=== PATIENT | female | born 1960 | race Caucasian/White ===

== ENCOUNTER 2016-12-30 14:00 | Outpatient (RCR) ==
--- NOTE | 2016-12-26 10:24 | RS.OPPTEV2 ---
Date of Note: 12/23/16 Visit #: 1 Date of Evaluation: 12/23/16 Payer Source: Insurance Surgery Performed?: No Treatment Diagnosis: Left shoulder pain History of Condition/Mechanism of Injury:: Patient reports left shoulder pain started approximately three weeks ago. Reports it seemed to start like a pulling in the muscles at the left side of the neck and went into the left shoulder. Now pain is primarily in the left shoulder. Prior Level of Function.....Patient was independent with: ADL's, Self Care, Work /Vocation, Caregiving, Ambulation/Mobility, Community Integration/Access Functional Limitations: Sleep, Self Care, ADL's, Reaching, Pushing, Pulling, Lifting, Carrying, Community Access/Integration Current Subjective/complaints:: Patient reports left shoulder pain. Reports being unable to use the left UE to pull the seatbelt across her, to reach her head to fix her hair, to russell her bra, and states she cannot lay on the left shoulder. She has had two occasions of severe pain with numnbess into the left UE, with the numbness going into the fingers of the left hand. She is right hand dominant. Reports she has not received an injection at this time. She is taking Aleve, which seems to help. States warmth from a hot shower seems to feel good to the shoulder. Treatment Side (optional): Left Medical History Surgical History: Cholecystectomy (2016) Smoking Status: Former smoker Hx Home Medications: Aleve Patient's Goals: Her goal is to gain relief of left shoulder pain. Pain Assessment - Pain Description Pain Location: left shoulder Current Pain Intensity: 1/10 Worst Pain Intensity: 8/10 Functional Outcome Measure UE Functional Index: 36 (36/80=55% impairment) - G Codes & Severity Modifier G Codes & Modifier: NA Source of G Code score: NA Observation - Observation Posture: Forward Head, Rounded Shoulders Handedness: Right Shoulder ROM: Right WFL's Shoulder Muscle Strength: Right WFL's - Left Shoulder ROM Left Shoulder Flexion: 95 (degrees AROM limited by pain) Left Shoulder Extension: 45 (degrees AROM) Left Shoulder Abduction: 55 (degrees limited by pain) Left Shoulder Internal Rotation: 65 (degrees AROM) Left Shoulder External Rotation: 35 (degrees AROM) Left Shoulder ROM Limitations: Pain Comments: Reports no left UE symptoms with cervical AROM. - Left Shoulder Strength Left Shoulder Flexion: 4+ Good + Left Shoulder Extension: 5 Normal Left Shoulder Abduction: 4 Good Left Shoulder Adduction: 5 Normal Left Shoulder External Rotation: 4+ Good + Left Shoulder Internal Rotation: 4+ Good + Comments: Mild discomfort reported with MMT of shoulder flexion,abduction, ER, and IR - Special Tests Shoulder Empty Can (Supraspinatus) Test: Positive Left Shoulder Speed's Sign Test: Positive Left Shoulder Drop Arm Test: Negative Left Shoulder Cao-Porfirio Impingement Test: Positive Left Cattle Driver Strength Left Hand Cattle Driver Strength: 44 lbs. Right Hand Cattle Driver Strength: 44 lbs. Dynamometer Testing Position: 2nd Position Palpation Comments:: Patient reports most tenderness over the posterior/lateral aspect of the humerus with palpation. Slight tenderness over the long head of the biceps tendon. Sensation - Sensation Comments: Reports sensation to light touch is intact throughout bilateral UE's. - Treatment Modality: Ultrasound Parameters/Method Applied: 1.2 w/cm2 pulsed @ 20% X 10 mins throughout left shoulder joint. Patient Position: Sitting Interventions - Exercise/Activities/Manual Therapy Exercises/Activities: Patient instructed in Pendulum exercise, scapular retraction, cervical retraction for HEP. Manual Therapy: NA HOME EXERCISE PROGRAM: Pendulum exercise, scapular retraction, cervical retraction - Charges Total Direct Minutes: 55 mins Total Treatment Time: 55 mins Procedures billed for this date of service:: James Sanchez , Assessment Assessment: Patient presents to therapy with a diagnosis of left shoulder pain. She reports having pain for ~ three weeks. She demonstrates symptoms of Impingement syndrome with possible involvement of RTC, biceps, and/or subacromial bursa. At this time she has pain with a variety of movements and with MMT. As inflammation is decreased, it should be easier to determine her source of pain. She demonstrates good potential to benefit from modalities and exercises to resolve her pain. Patient Education: Education of diagnosis, Body/Joint mechanics, Home Exercise Program, Home Safety, Activity Modification, Education of Plan of Care Rehab Potential: Good Short Term Goals Goal #1: Patient independent in basic HEP. Goal to be met by: 01/09/17 Goal #2: Right shoulder active flexion to 120 without pain. Goal to be met by: 01/09/17 Goal #3: Patient to demonstrate good postural awareness. Goal to be met by: 01/09/17 Group Home Goals Goal #1: Pt knows HEP and to continue ex's to maintain functional level at D/C. Goal to be met by: 02/04/17 Goal #2: Score on UE functional scale improved to 60/80. Goal to be met by: 02/04/17 Goal #3: Pt able to use left UE for all selfcare and ADL's without difficulty. Goal to be met by: 02/04/17 Goal #4: Pt able to sleep 6-8 hours without interruption from left shoulder pain. Goal to be met by: 02/04/17 Plan - Treatment to be Provided Procedures: Therapeutic Exercises, Therapeutic Activity, Manual Therapy, Patient Education Modalities: Electrical Stimulation, Ultrasound/Phonophoresis, Class IV Laser, Cryotherapy, Hot Packs - Treatment Plan Frequency: 3 X week Duration: 4 weeks ORDER # VISITS AND/OR THROUGH DATE: 02/04/17 - Treatment Code (1) Shoulder pain Qualifiers: Laterality: left Chronicity: acute Qualified Description: Acute pain of left shoulder Qualifier Code(s): (M25.512) Pain in left shoulder (2) Impingement syndrome of left shoulder Comments: M75.42
--- NOTE | 2016-12-26 16:38 | RS.OPPTDN ---
Subjective Date of Note: 12/26/16 Visit #: 2 Date of Evaluation: 12/23/16 Payer Source: Insurance Treatment Diagnosis: Left shoulder pain Current Subjective/complaints:: Patient reports increased anterior left shoulder joint pain. States she was performing scap retraction exercise and feel a pull and has had pain all day. Pain Assessment - Pain Description Pain Location: left shoulder Current Pain Intensity: mod - Treatment Modality: Ultrasound Parameters/Method Applied: [id number] at 1.5w/cm2 and last 3mins on pulsed setting to the left shoulder joint. Patient Position: Sitting - Heat/Cryotherapy Treatment: Hot Pack ([id number] to the left shoulder prior to US and EX. Patient in sitting. ) Interventions - Exercise/Activities/Manual Therapy Exercises/Activities: Reveiwed pendulum exercise, scapular retraction, cervical retraction for HEP. Began isometric shoulder extension, adduction, IR, and ER all in neutral. Began cervical lateral flexion stretching. Total minutes of Exercise: 15mins Manual Therapy: NA HOME EXERCISE PROGRAM: Pendulum exercise, scapular retraction, cervical retraction, isometric shoulder ext and add - Charges Total Direct Minutes: 29mins Total Treatment Time: 49mins Procedures billed for this date of service:: HP, US, EX Assessment: Patient with flair-up of pain following increase in exercise. She will need to continue with modalities and gentle exercise in attempt to reduce inflammation and pain. Patient Education: Home Exercise Program Patient demonstrates compliance with HEP?: Yes Short Term Goals Goal #1: Patient independent in basic HEP. Goal to be met by: 01/09/17 Progress towards Goal:: Progressing Goal #2: Right shoulder active flexion to 120 without pain. Goal to be met by: 01/09/17 Goal #3: Patient to demonstrate good postural awareness. Goal to be met by: 01/09/17 Progress towards Goal:: Progressing Group Home Goals Goal #1: Pt knows HEP and to continue ex's to maintain functional level at D/C. Goal to be met by: 02/04/17 Goal #2: Score on UE functional scale improved to 60/80. Goal to be met by: 02/04/17 Goal #3: Pt able to use left UE for all selfcare and ADL's without difficulty. Goal to be met by: 02/04/17 Goal #4: Pt able to sleep 6-8 hours without interruption from left shoulder pain. Goal to be met by: 02/04/17 Plan PLAN OF CARE EXPIRES ON:: 02/04/17 ORDER # VISITS AND/OR THROUGH DATE: 02/04/17 PLAN: Continue Plan of Care
--- NOTE | 2016-12-30 15:27 | RS.OPPTDN ---
Subjective Date of Note: 12/30/16 Visit #: 3 Date of Evaluation: 12/23/16 Payer Source: Insurance Treatment Diagnosis: Left shoulder pain Current Subjective/complaints:: Patient reports continued pain in the anterior shoulder joint and increased pain with active motion at shoulder height, including shoulder retraction. Tom decides to hold treatment at this time and she will contact physician if no improvement seen by Monday. She will continue basic HEP. Pain Assessment - Pain Description Pain Location: left shoulder Current Pain Intensity: mod - Treatment Modality: Ultrasound Parameters/Method Applied: [id number] at 1.5w/cm2 for 7mins and then pulsed for 5mins to the left shouulder joint prior to EX. Patient Position: Sitting - Heat/Cryotherapy Treatment: Hot Pack ([id number] to the left shoulder joint prior to US and EX. Patient in sitting. ) Interventions - Exercise/Activities/Manual Therapy Exercises/Activities: Reveiwed pendulum exercise, scapular retraction, cervical retraction for HEP. Isometric shoulder extension, adduction, IR, and ER all in neutral. AAROM. Table slides. Reviewed overhead AAROM clasped hands shoulder flexion. Began shoulder pulleys. Total minutes of Exercise: 18mins Manual Therapy: NA HOME EXERCISE PROGRAM: Pendulum exercise, scapular retraction, cervical retraction, isometric shoulder ext and add. AAROM for shoulder flexion with hands clasped on bed or semi-reclined in recliner. Shoulder pulleys for gentle ROM - Charges Total Direct Minutes: 32mins Total Treatment Time: 52mins Procedures billed for this date of service:: HP, US, EX Assessment: Patient unsure of progress with current treatment. Will hold at this time and contact physician on Monday. Patient Education: Education of diagnosis, Body/Joint mechanics, Home Exercise Program, Home Safety, Activity Modification Patient demonstrates compliance with HEP?: Yes Short Term Goals Goal #1: Patient independent in basic HEP. Goal to be met by: 01/09/17 (100%) Progress towards Goal:: Met Goal #2: Right shoulder active flexion to 120 without pain. Goal to be met by: 01/09/17 Progress towards Goal:: Not Met Goal #3: Patient to demonstrate good postural awareness. Goal to be met by: 01/09/17 Progress towards Goal:: Progressing Mcfp Goals Goal #1: Pt knows HEP and to continue ex's to maintain functional level at D/C. Goal to be met by: 02/04/17 Progress towards goal: Progressing Goal #2: Score on UE functional scale improved to 60/80. Goal to be met by: 02/04/17 Progress towards goal: Not Met Goal #3: Pt able to use left UE for all selfcare and ADL's without difficulty. Goal to be met by: 02/04/17 Progress towards goal: Not Met Goal #4: Pt able to sleep 6-8 hours without interruption from left shoulder pain. Goal to be met by: 02/04/17 Progress towards goal: Not Met Plan PLAN OF CARE EXPIRES ON:: 02/04/17 ORDER # VISITS AND/OR THROUGH DATE: 02/04/17 PLAN: Hold (Patient to contact physician first of next week if no improvement seen.)
== END 2017-01-18 ==
PROVIDERS: ATTEND Physician Assistant Medical
DX: M25.512 Pain in left shoulder (principal)

== ENCOUNTER 2017-02-13 09:15 | Outpatient (RCR) ==
--- NOTE | 2017-01-26 13:16 | RS.OPPTEV2 ---
Date of Note: 01/25/17 Visit #: 1 Date of Evaluation: 01/25/17 Payer Source: Insurance Procedure Performed: Left shoulder manipulation Date of Procedure: 01/24/17 Treatment Diagnosis: Left shoulder pain, left shoulder stiffness, s/p left manipulation History of Condition/Mechanism of Injury:: Patient reports having a manipulation of the left shoulder yesterday. She received a few weeks of therapy to the left shoulder without any significant benefit prior to having this manipulation. Prior Level of Function.....Patient was independent with: ADL's, Self Care, Work /Vocation, Caregiving, Ambulation/Mobility, Community Integration/Access Functional Limitations: Sleep, Self Care, ADL's, Reaching, Pushing, Pulling, Lifting, Carrying, Community Access/Integration Current Subjective/complaints:: Patient reports no significant increase in left shoulder pain since the manipulation yesterday. In fact, she reports less sharp pains in the shoulder region today. Sleep has been interrupted since having progressive left shoulder pain. States the nerve block from the procedure wore off last night. She denies any tingling or numbness in the left UE. She took pain medication at bedtime, but has not taken any pain medication today. She goes back for a follow up appointment on 02/04/17. States she is able to perform the pendulum exercise now without the discomfort she had prior to the manipulation. Treatment Side (optional): Left Medical History Surgical History: Cholecystectomy (2016) Smoking Status: Former smoker Hx Home Medications: Aleve Patient's Goals: Her goal is to regain full AROM of the left shoulder. Pain Assessment - Pain Description Pain Location: left shoulder Current Pain Intensity: 2/10 Worst Pain Intensity: 7/10 Functional Outcome Measure UE Functional Index: 53 (53/80=33.7% impairment) - G Codes & Severity Modifier G Codes & Modifier: NA Source of G Code score: NA Observation - Observation Posture: Forward Head, Rounded Shoulders Handedness: Right Shoulder ROM: Right WFL's Shoulder Muscle Strength: Right WFL's - Left Shoulder ROM Comments: AROM shoulder: flexion 95 degrees, abduction 70 degrees, IR 45 degrees, ER 20 degrees. All active ROM limited by pain. PROM: flexion 140 degrees, abduction 120 degrees, ER 50 degrees, IR 60 degrees. Patient demonstrates muscle guarding, which does improve after a few minutes of ROM/ stretching. - Left Shoulder Strength Comments: Left shoulder strength generally 4/5. Sensation - Sensation Right Upper Extremity: Intact/Normal Left Upper Extremity: Intact/Normal Interventions - Exercise/Activities/Manual Therapy Exercises/Activities: Patient received ~ 20 mins of PROM/stretching in all directions to the left shoulder. She reports pain at end range with all directions, but reports more pain with ER. Performed contract/relax technique for ER, which does help. As patient was able to relax, left shoulder tolerated more ROM. Instructed in Passive and AAROM of left shoulder in all directions- demonstrated with wand and in door threshold. Advised to use heat prior to stretching and ice following stretching/exercises. Total minutes of Exercise: X 20 mins Manual Therapy: NA HOME EXERCISE PROGRAM: Pendulum exercise, wand for AAROM into shoulder flexion, abduction, ER. Door threshold for self-stretch into ER. - Charges Total Direct Minutes: 45 mins Total Treatment Time: 45 mins Procedures billed for this date of service:: SUMMER Cardenas Assessment Assessment: Patient presents one day s/p left shoulder manipulation. She reports less sharp pains in the shoulder since the procedure. She demonstrates limited passive and active left shoulder ROM and general weakness. She will benefit from consistent ROM and strengthening to regain functional, pain-free AROM of the left shoulder. Patient Education: Education of diagnosis, Body/Joint mechanics, Home Exercise Program, Education of Plan of Care Rehab Potential: Good Short Term Goals Goal #1: Patient independent in basic HEP. Goal to be met by: 02/09/17 Goal #2: PROM of left shoulder WFL's. Goal to be met by: 02/09/17 Goal #3: Left shoulder strength 4+/5. Goal to be met by: 02/09/17 Jail Goals Goal #1: Pt knows HEP and to continue ex's to maintain functional level at D/C. Goal to be met by: 03/07/17 Goal #2: Score on UE functional scale improved to 60/80. Goal to be met by: 03/07/17 Goal #3: Pt able to use left UE for all selfcare and ADL's without difficulty. Goal to be met by: 03/07/17 Goal #4: Pt able to sleep 6-8 hours without interruption from left shoulder pain. Goal to be met by: 03/07/17 Plan - Treatment to be Provided Procedures: Therapeutic Exercises, Therapeutic Activity, Manual Therapy, Patient Education Modalities: Electrical Stimulation, Ultrasound/Phonophoresis, Class IV Laser, Cryotherapy, Hot Packs - Treatment Plan Frequency: 3 X week Duration: 4 weeks ORDER # VISITS AND/OR THROUGH DATE: 03/07/17 - Treatment Code (1) Shoulder pain Qualifiers: Chronicity: acute Laterality: left Qualified Description: Acute pain of left shoulder Qualifier Code(s): (M25.512) Pain in left shoulder (2) Stiffness of left shoulder joint Comments: M25.612 (3) Tendinopathy of left rotator cuff Comments: M67.912 (4) Other specified postprocedural states Comments: Z98.890 s/p left shoulder manipulation
--- NOTE | 2017-01-27 09:40 | RS.OPPTDN ---
Subjective Date of Note: 01/27/17 Visit #: 2 Date of Evaluation: 01/25/17 Payer Source: Insurance Treatment Diagnosis: Left shoulder pain, left shoulder stiffness, s/p left manipulation Current Subjective/complaints:: Patient says she worked on HEP yesterday, but had increased pain during a portion of it and it made her stop. She had taken a pain pill and went to bed. She did take a pain med prior to treatment today. Pain Assessment - Pain Description Pain Location: left shoulder Current Pain Intensity: 2/10 - Heat/Cryotherapy Treatment: Hot Pack (15 mins to the L shoulder in sitting) Interventions - Exercise/Activities/Manual Therapy Exercises/Activities: Patient received PROM all dir for the L shoulder in supine. AA Flexion to ~155 degrees today. ABD and ER slightly better than at eval, but with more discomfor than flexion. Began manual isometrics for IR/ER x 5. AAROM with 1# wand for bilateral shoulder flexion. Instructed on wall slides. Total minutes of Exercise: 26 Manual Therapy: NA HOME EXERCISE PROGRAM: Pendulum exercise, wand for AAROM into shoulder flexion, abduction, ER. Door threshold for self-stretch into ER. - Charges Total Direct Minutes: 26 Total Treatment Time: 41 Procedures billed for this date of service:: hp, ex2 Short Term Goals Goal #1: Patient independent in basic HEP. Goal to be met by: 02/09/17 Progress towards Goal:: Progressing Goal #2: PROM of left shoulder WFL's. Goal to be met by: 02/09/17 Goal #3: Left shoulder strength 4+/5. Goal to be met by: 02/09/17 Radiocommunications Technician Goals Goal #1: Pt knows HEP and to continue ex's to maintain functional level at D/C. Goal to be met by: 03/07/17 Goal #2: Score on UE functional scale improved to 60/80. Goal to be met by: 03/07/17 Goal #3: Pt able to use left UE for all selfcare and ADL's without difficulty. Goal to be met by: 03/07/17 Goal #4: Pt able to sleep 6-8 hours without interruption from left shoulder pain. Goal to be met by: 03/07/17 Plan PLAN OF CARE EXPIRES ON:: 03/07/17 ORDER # VISITS AND/OR THROUGH DATE: 03/07/17 PLAN: Progress Exercises
--- NOTE | 2017-01-30 09:09 | RS.OPPTDN ---
Subjective Date of Note: 01/30/17 Visit #: 3 Date of Evaluation: 01/25/17 Payer Source: Insurance Treatment Diagnosis: Left shoulder pain, left shoulder stiffness, s/p left manipulation Current Subjective/complaints:: Patient says she has been performing HEP twice daily. She says she is consciencious of using the L arm and uses it more with daily tasks. States she can tell she has more motion in abd. Pain Assessment - Pain Description Pain Location: left shoulder Current Pain Intensity: 0, took pain pill prior to PT appt - Heat/Cryotherapy Treatment: Hot Pack (15 mins to the L UE in supine) Interventions - Exercise/Activities/Manual Therapy Exercises/Activities: Patient received PROM all dir for the L shoulder in supine. Patient was able to ankur increased shoulder flexion to ~160 today. ABD and ER also ankur better and more range than last session. Began manual isometrics for IR/ER 2 x 5. AAROM with 1# wand for bilateral shoulder flexion and press ups. Instructed and performed yellow tband scap retraction. Total minutes of Exercise: 27 Manual Therapy: NA HOME EXERCISE PROGRAM: Pendulum exercise, wand for AAROM into shoulder flexion, abduction, ER. Door threshold for self-stretch into ER. - Charges Total Direct Minutes: 27 Total Treatment Time: 42 Procedures billed for this date of service:: hp, ex2 Assessment: Patient very consistent with HEP at this point. She is able to ankur increased shoulder flexion and abd today compared to even last session. She demo soft end feel throughout all motion and provides good resistance with all isometrics. Patient Education: Education of diagnosis, Body/Joint mechanics, Home Exercise Program, Home Safety, Activity Modification, Education of Plan of Care Patient demonstrates compliance with HEP?: Yes Short Term Goals Goal #1: Patient independent in basic HEP. Goal to be met by: 02/09/17 Progress towards Goal:: Progressing Goal #2: PROM of left shoulder WFL's. Goal to be met by: 02/09/17 Progress towards Goal:: Progressing Goal #3: Left shoulder strength 4+/5. Goal to be met by: 02/09/17 Progress towards Goal:: Progressing Information Officer Goals Goal #1: Pt knows HEP and to continue ex's to maintain functional level at D/C. Goal to be met by: 03/07/17 Goal #2: Score on UE functional scale improved to 60/80. Goal to be met by: 03/07/17 Goal #3: Pt able to use left UE for all selfcare and ADL's without difficulty. Goal to be met by: 03/07/17 Goal #4: Pt able to sleep 6-8 hours without interruption from left shoulder pain. Goal to be met by: 03/07/17 Plan PLAN OF CARE EXPIRES ON:: 02/05/17 ORDER # VISITS AND/OR THROUGH DATE: 03/07/17 PLAN: Progress Exercises
--- NOTE | 2017-02-01 09:36 | RS.OPPTDN ---
Subjective Date of Note: 02/01/17 Visit #: 4 Date of Evaluation: 01/25/17 Payer Source: Insurance Treatment Diagnosis: Left shoulder pain, left shoulder stiffness, s/p left manipulation Current Subjective/complaints:: Patient says she has had very little pain and none with taking pain meds prior to PT. She says she was able to pull her hair back and through baseball cap hole without the assistance from her . She also is able to remove tshirts with arms wrapped around her chest and pulling it over her head. Pain Assessment - Pain Description Pain Location: left shoulder Pain Description: nauseated temporarily while sitting for heat and following taking pain meds Current Pain Intensity: 0, took pain pill prior to PT appt - Heat/Cryotherapy Treatment: Hot Pack (15 mins to the L shoulder in sitting) Interventions - Exercise/Activities/Manual Therapy Exercises/Activities: Patient received PROM all dir for the L shoulder in supine. Patient was able to ankur increased shoulder flexion to ~165-170 today. ABD to 160 and ER also ankur better and more range than last session. Began manual isometrics for IR/ER 2 x 5. AAROM with 1# wand for bilateral shoulder flexion and press ups. 2# wand for 5 reps of bilateral shoulder flexion. Progressed to red tband for scap retraction as she felt yellow was too easy. Audible pops x 2 during shoulder flexion passively today, but did not produce pain. Total minutes of Exercise: 28 Manual Therapy: NA HOME EXERCISE PROGRAM: Pendulum exercise, wand for AAROM into shoulder flexion, abduction, ER. Door threshold for self-stretch into ER. - Charges Total Direct Minutes: 28 Total Treatment Time: 43 Procedures billed for this date of service:: hp, ex2 Assessment: Patient progressing to red tband for home. Added weight today with bialteral shoulder activities. 4+/5 MMT generally throughout the L shoulder today. Ankur all therex with only mild soreness at end range ER and ABD. Active shoulder flexion: 156 (Passive 163 supine). Active shoulder ABD: 160 ( Passive 165 supine). IR Functional reach: L3. ER Functional reach: T2 Patient Education: Education of diagnosis, Body/Joint mechanics, Home Exercise Program, Home Safety, Activity Modification, Education of Plan of Care Patient demonstrates compliance with HEP?: Yes Short Term Goals Goal #1: Patient independent in basic HEP. Goal to be met by: 02/09/17 Progress towards Goal:: Progressing Goal #2: PROM of left shoulder WFL's. Goal to be met by: 02/09/17 Progress towards Goal:: Partially Met Comments:: with exception of IR Goal #3: Left shoulder strength 4+/5. 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 Goal to be met by: 03/07/17 Progress towards goal: Progressing Goal #2: Score on UE functional scale improved to 60/80. Goal to be met by: 03/07/17 Goal #3: Pt able to use left UE for all selfcare and ADL's without difficulty. Goal to be met by: 03/07/17 Progress towards goal: Progressing (improving with ADLs, grooming, clothing) Goal #4: Pt able to sleep 6-8 hours without interruption from left shoulder pain. Goal to be met by: 03/07/17 Plan PLAN OF CARE EXPIRES ON:: 03/07/17 ORDER # VISITS AND/OR THROUGH DATE: 03/07/17 PLAN: Progress Exercises (Follow up with ortho this Monday, February 03.)
--- NOTE | 2017-02-03 14:44 | RS.OPPTDN ---
Subjective Date of Note: 02/03/17 Visit #: 5 Date of Evaluation: 01/25/17 Payer Source: Insurance Treatment Diagnosis: Left shoulder pain, left shoulder stiffness, s/p left manipulation Current Subjective/complaints:: Patient says she has been released from MD due to progress. PA recommended her to continue with PT though. She says she is only taking pain meds TIW just once prior to PT. Says she continues to work on HEP twice daily. Pain Assessment - Pain Description Pain Location: left shoulder Current Pain Intensity: 0, took pain pill prior to PT appt - Heat/Cryotherapy Treatment: Hot Pack (15 mins to the L shoulder in sitting) Interventions - Exercise/Activities/Manual Therapy Exercises/Activities: Patient received PROM all dir for the L shoulder in supine. Patient was able to ankur increased shoulder flexion to ~165-170 today. ABD to 160 and ER also ankur better and more range than last session. Continued with manual isometrics for IR/ER 2 x 5. AAROM with 1# wand for bilateral shoulder flexion and 2# for press ups x 10. 2# wand for 5 reps of bilateral shoulder flexion. Patient progressed herself to green and for scap retraction. Supine wrist and elbow 1# PRE's x 10. Sitting 1# wand for bilateral shoulder flexion x 10 to full flexion. Shoulder shrugs. Total minutes of Exercise: 34 Manual Therapy: NA HOME EXERCISE PROGRAM: Pendulum exercise, wand for AAROM into shoulder flexion, abduction, ER. Door threshold for self-stretch into ER. - Charges Total Direct Minutes: 34 Total Treatment Time: 49 Procedures billed for this date of service:: caridad, ex2 Assessment: Patient has been released from MD at this point since she has progressed so well. She demo full shoulder flexion actively with wand exercise. She admits no pain with any therex and only taking one pain pill prior to PT appts. She denies trouble sleeping. Good resistance manually generally throughout the L shoulder. Patient Education: Education of diagnosis, Body/Joint mechanics, Home Exercise Program, Home Safety, Activity Modification, Education of Plan of Care Patient demonstrates compliance with HEP?: Yes Short Term Goals Goal #1: Patient independent in basic HEP. Goal to be met by: 02/09/17 Progress towards Goal:: Progressing Goal #2: PROM of left shoulder WFL's. Goal to be met by: 02/09/17 Progress towards Goal:: Partially Met Goal #3: Left shoulder strength 4+/5. Goal to be met by: 02/09/17 Progress towards Goal:: Met Alf Goals Goal #1: Pt knows HEP and to continue ex's to maintain functional level at D/C. Goal to be met by: 03/07/17 Progress towards goal: Progressing Goal #2: Score on UE functional scale improved to 60/80. Goal to be met by: 03/07/17 Goal #3: Pt able to use left UE for all selfcare and ADL's without difficulty. Goal to be met by: 03/07/17 Progress towards goal: Progressing (improving with ADLs, grooming, clothing) Goal #4: Pt able to sleep 6-8 hours without interruption from left shoulder pain. Goal to be met by: 03/07/17 Plan PLAN OF CARE EXPIRES ON:: 03/07/17 ORDER # VISITS AND/OR THROUGH DATE: 03/07/17 PLAN: Progress Exercises
--- NOTE | 2017-02-06 10:47 | RS.OPPTDN ---
Subjective Date of Note: 02/06/17 Visit #: 6 Date of Evaluation: 01/25/17 Payer Source: Insurance Treatment Diagnosis: Left shoulder pain, left shoulder stiffness, s/p left manipulation Current Subjective/complaints:: Patient says she is able to notice more rotation of the L arm. She says she can pull it behind her back higher and with less difficulty. Pain Assessment - Pain Description Pain Location: left shoulder Current Pain Intensity: 0, took pain pill prior to PT appt - Heat/Cryotherapy Treatment: Hot Pack (15 mins to the L shoulder in sitting) Interventions - Exercise/Activities/Manual Therapy Exercises/Activities: Patient received PROM and stretch all dir for the L shoulder in supine. Continued with manual isometrics for IR/ER 2 x 5. AAROM progressed to 2# wand for bilateral shoulder flexion and 2# for press ups 2 x 10. 2# PREs for wrist and elbow motions in supine x 10. 7 and 9# digiflexor for full telecommunications project manager x 10 each. 1# PRE dumbell for punches in supine x 10. Sitting 1# wand for bilateral shoulder flexion and abd x 10 to full flexion. Total minutes of Exercise: 30 Manual Therapy: NA HOME EXERCISE PROGRAM: Pendulum exercise, wand for AAROM into shoulder flexion, abduction, ER. Door threshold for self-stretch into ER. - Charges Total Direct Minutes: 30 Total Treatment Time: 45 Procedures billed for this date of service:: hp, ex2 Assessment: Patient demo improved ability to perform ADLs and AROM. She maintains no difficulty sleeping or pain at current. She is advancing with strengthening well. Patient Education: Education of diagnosis, Body/Joint mechanics, Home Exercise Program, Home Safety, Activity Modification, Education of Plan of Care Patient demonstrates compliance with HEP?: Yes Short Term Goals Goal #1: Patient independent in basic HEP. Goal to be met by: 02/09/17 Progress towards Goal:: Progressing Goal #2: PROM of left shoulder WFL's. Goal to be met by: 02/09/17 Progress towards Goal:: Partially Met Goal #3: Left shoulder strength 4+/5. Goal to be met by: 02/09/17 Progress towards Goal:: Met Heat Reader Goals Goal #1: Pt knows HEP and to continue ex's to maintain functional level at D/C. Goal to be met by: 03/07/17 Progress towards goal: Progressing Goal #2: Score on UE functional scale improved to 60/80. Goal to be met by: 03/07/17 Goal #3: Pt able to use left UE for all selfcare and ADL's without difficulty. Goal to be met by: 03/07/17 Progress towards goal: Progressing (improving with ADLs, grooming, clothing) Goal #4: Pt able to sleep 6-8 hours without interruption from left shoulder pain. Goal to be met by: 03/07/17 Plan PLAN OF CARE EXPIRES ON:: 03/07/17 ORDER # VISITS AND/OR THROUGH DATE: 03/07/17 PLAN: Progress Exercises
--- NOTE | 2017-02-08 11:28 | RS.OPPTDN ---
Subjective Date of Note: 02/08/17 Date of Evaluation: 01/25/17 Payer Source: Insurance Treatment Diagnosis: Left shoulder pain, left shoulder stiffness, s/p left manipulation Current Subjective/complaints:: Patient says her shoulder has been popping some. She denies any pain. She has been able to notice improvement with getting clothes out of her washer and placing in the dryer as well as fastening and unbuckleing it. Reports she feels she has nearly the motion of her opposite arm with the exception of rotation (IR). Pain Assessment - Pain Description Pain Location: left shoulder Current Pain Intensity: 0, took pain pill prior to PT appt - Heat/Cryotherapy Treatment: Hot Pack (15 mins to the L shoulder in sitting) Interventions - Exercise/Activities/Manual Therapy Exercises/Activities: Patient received PROM and stretch all dir for the L shoulder in supine. Continued with manual isometrics for IR/ER 2 x 10. 2 1/ 2# wand for bilateral shoulder flexion and 2# for press ups 2 x 10. 2# PREs for wrist and elbow motions in supine x 10. 7 and 9# digiflexor for full sales and catering coordinator x 10 each. 1# PRE dumbell for punches and shoulder flex in supine x 10. Added 1# dumbell for diagonals (pect clavicular and sternal fibers) x 5 each. Sitting : 2 1/2# wand for bilateral shoulder flexion, 1# dumbell for shoulder flexion and abd. UBE for/retro x 4 mins with mod resistance. Total minutes of Exercise: 35 Manual Therapy: NA HOME EXERCISE PROGRAM: Pendulum exercise, wand for AAROM into shoulder flexion, abduction, ER. Door threshold for self-stretch into ER. - Charges Total Direct Minutes: 35 Total Treatment Time: 50 Procedures billed for this date of service:: hp, ex2 Assessment: Patient demo full active shoulder flexion and abd. ER is WFL and IR improving by 10 degrees today compared to last session. She is comfortable with this week being her final week as her MD has released her and she is able to perform strengthening at home. Patient Education: Education of diagnosis, Body/Joint mechanics, Home Exercise Program, Home Safety, Activity Modification, Education of Plan of Care Patient demonstrates compliance with HEP?: Yes Short Term Goals Goal #1: Patient independent in basic HEP. Goal to be met by: 02/09/17 Progress towards Goal:: Met Goal #2: PROM of left shoulder WFL's. Goal to be met by: 02/09/17 Progress towards Goal:: Met Goal #3: Left shoulder strength 4+/5. 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 Goal to be met by: 03/07/17 Progress towards goal: Progressing Goal #2: Score on UE functional scale improved to 60/80. Goal to be met by: 03/07/17 Comments: Assess next session Goal #3: Pt able to use left UE for all selfcare and ADL's without difficulty. Goal to be met by: 03/07/17 Progress towards goal: Progressing (improving with ADLs, grooming, clothing) Goal #4: Pt able to sleep 6-8 hours without interruption from left shoulder pain. Goal to be met by: 03/07/17 Plan PLAN OF CARE EXPIRES ON:: 03/07/17 ORDER # VISITS AND/OR THROUGH DATE: 03/07/17 PLAN: Plan for Discharge
--- NOTE | 2017-02-10 11:56 | RS.OPPTDN ---
Subjective Date of Note: 02/10/17 Visit #: 8 Date of Evaluation: 01/25/17 Payer Source: Insurance Treatment Diagnosis: Left shoulder pain, left shoulder stiffness, s/p left manipulation Current Subjective/complaints:: Patient says she is finding it easier to reach up her back, but does have occasional popping to the L shoulder. She denies pain and it is not constant. Pain Assessment - Pain Description Pain Location: left shoulder Interventions - Exercise/Activities/Manual Therapy Exercises/Activities: Shayla began with UBE x 4 mins for/retro. Patient received PROM and stretch all dir for the L shoulder in supine. Continued with manual isometrics for IR/ER 2 x 10. 2 1/2# wand for bilateral shoulder flexion and 2# for press ups 2 x 10. 2# PREs for wrist and elbow motions in supine x 10. 7 and 9# digiflexor for full manager acquisition x 10 each. Green tband for pull downs 2/10. 1# PRE dumbell for punches and shoulder flex in supine x 10. Sittin 1/2# wand for bilateral shoulder flexion, 1# dumbell for shoulder flexion and abd. Green tband for bilateral shoulder ER x 10. Standing green tband pull downs x 15. Total minutes of Exercise: 38 Manual Therapy: NA HOME EXERCISE PROGRAM: Pendulum exercise, wand for AAROM into shoulder flexion, abduction, ER. Door threshold for self-stretch into ER. - Charges Total Direct Minutes: 38 Total Treatment Time: 38 Procedures billed for this date of service:: ex3 Patient Education: Education of diagnosis, Body/Joint mechanics, Home Exercise Program, Home Safety, Activity Modification, Education of Plan of Care Patient demonstrates compliance with HEP?: Yes Short Term Goals Goal #1: Patient independent in basic HEP. Goal to be met by: 02/09/17 Progress towards Goal:: Met Goal #2: PROM of left shoulder WFL's. Goal to be met by: 02/09/17 Progress towards Goal:: Met Goal #3: Left shoulder strength 4+/5. Goal to be met by: 02/09/17 Progress towards Goal:: Met Nursing Home Goals Goal #1: Pt knows HEP and to continue ex's to maintain functional level at D/C. Goal to be met by: 03/07/17 Progress towards goal: Progressing Goal #2: Score on UE functional scale improved to 60/80. Goal to be met by: 03/07/17 Goal #3: Pt able to use left UE for all selfcare and ADL's without difficulty. Goal to be met by: 03/07/17 Progress towards goal: Progressing (improving with ADLs, grooming, clothing) Goal #4: Pt able to sleep 6-8 hours without interruption from left shoulder pain. Goal to be met by: 03/07/17 Plan PLAN OF CARE EXPIRES ON:: 03/07/17 ORDER # VISITS AND/OR THROUGH DATE: 03/07/17 PLAN: Progress Exercises
--- NOTE | 2017-02-13 11:38 | RS.OPPTDN ---
Subjective Date of Note: 02/13/17 Visit #: 9 Date of Evaluation: 01/25/17 Payer Source: Insurance Treatment Diagnosis: Left shoulder pain, left shoulder stiffness, s/p left manipulation Current Subjective/complaints:: Patient asks for today to be her final visit. She reports performing many ADLs and housework tasks without difficulty. She says she continues to work on strengthening at home and only takes pain meds prior to PT sessions (in which she feels she does not require it). She is sleeping without difficulty. Pain Assessment - Pain Description Pain Location: left shoulder Current Pain Intensity: 0, took pain pill prior to PT appt Interventions - Exercise/Activities/Manual Therapy Exercises/Activities: Shayla began with UBE x 5 mins for/retro. Patient received PROM and stretch all dir for the L shoulder in supine. Continued with manual isometrics for IR/ER 2 x 10. Increased to 3# wand for bilateral shoulder flexion and 3# for press ups 2 x 10. 2# PREs for wrist and elbow motions in supine x 10. 9# digiflexor for full brass wind instrument maker x 15 each. Progressed to blue tband for pull downs 2/10. Progressed to 2# PRE dumbell for punches and shoulder flex in supine x 10. Sittin 1/2# wand for bilateral shoulder flexion, 1# dumbell for shoulder flexion and abd. Green tband for bilateral shoulder ER x 10. Standing blue tband pull downs x 15. Shelf reach for 2# ball using L arm only from trunk to overhead x 10. Revised HEP and given blue tband. Reassessed UE Index. Total minutes of Exercise: 38 Manual Therapy: NA HOME EXERCISE PROGRAM: Pendulum exercise, wand for AAROM into shoulder flexion, abduction, ER. Door threshold for self-stretch into ER. - Objective Findings Observations,measurements,etc.: 80/80 or 0% impairment - Charges Total Direct Minutes: 38 Total Treatment Time: 38 Procedures billed for this date of service:: ex3 Assessment: Patient has met all goals at this point and self discharges due to progress. Full ROM actively for flexion/abd, IR/ER @ 80% of norm. Patient Education: Education of diagnosis, Body/Joint mechanics, Home Exercise Program, Home Safety, Activity Modification, Education of Plan of Care Patient demonstrates compliance with HEP?: Yes Short Term Goals Goal #1: Patient independent in basic HEP. Goal to be met by: 02/09/17 Progress towards Goal:: Met Goal #2: PROM of left shoulder WFL's. Goal to be met by: 02/09/17 Progress towards Goal:: Met Goal #3: Left shoulder strength 4+/5. 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 Goal to be met by: 03/07/17 Progress towards goal: Met Goal #2: Score on UE functional scale improved to 60/80. Goal to be met by: 03/07/17 Progress towards goal: Met Goal #3: Pt able to use left UE for all selfcare and ADL's without difficulty. Goal to be met by: 03/07/17 Progress towards goal: Met (improving with ADLs, grooming, clothing, vacuuming) Goal #4: Pt able to sleep 6-8 hours without interruption from left shoulder pain. Goal to be met by: 03/07/17 Plan PLAN OF CARE EXPIRES ON:: 03/07/17 ORDER # VISITS AND/OR THROUGH DATE: 03/07/17 PLAN: Plan for Discharge
== END 2017-02-17 ==
PROVIDERS: ATTEND Orthopaedic Surgery
DX: M67.912 Unspecified disorder of synovium and tendon, left shoulder (principal)

== ENCOUNTER 2017-08-11 08:43 | Outpatient (CLI) ==
--- NOTE | 2017-08-11 09:29 | MAMMO ---
EXAM: Bilateral digital screening mammogram (2-D and 3-D) History: Screening Comparison: Bilateral mammogram 08/10/2016 Findings: MLO and CC views of bilateral breasts demonstrate heterogeneously dense breast parenchyma which can obscure small lesions. CAD was reviewed by the radiologist. Tomosynthesis was performed. There are no dominant masses, no suspicious microcalcifications and no architectural distortions. S table benign calcification within the right breast. Impression: Benign stable mammogram. Recommend followup routine screening mammography in 1 year. BIRADS 2
== END 2017-08-11 08:44 | disposition home or self-care (01) ==
LOC: RAD 08:43
PROVIDERS: ATTEND Physician Assistant
DX: Z12.31 Encounter for screening mammogram for malignant neoplasm of breast (principal)
CPT/HCPCS: 77067

== ENCOUNTER 2018-04-04 10:31 | Outpatient (CLI) | END 2018-04-04 10:32 | disposition home or self-care (01) | LOC: LAB 10:31 | PROVIDERS: ATTEND Physician Assistant | DX: D70.9 Neutropenia, unspecified (principal) | CPT/HCPCS: 36415 ==